=== PATIENT | female | born 1990 | race American Indian/Alaskan Native ===

== ENCOUNTER 2016-11-05 01:29 | Inpatient (IN) | payer BC, MEDICAID ==
[2016-11-05] MEDS ORDERED: XYLOCAINE 2% INFILTRATI ONE (03:15)
[2016-11-05] MEDS ORDERED: BRETHINE IVP PRN (03:15)
[2016-11-05] MEDS ORDERED: ePHEDrine SULFATE IV PRN ×2 (03:15→13:31)
[2016-11-05] MEDS ORDERED: BRETHINE SUB-Q PRN (03:15)
[2016-11-05] MEDS ORDERED: PFIZERPEN 5 MIL.UNITS in NACL 0.9% 50 ML IV ONE (03:30)
[2016-11-05 03:53] LABS: Hematocrit 23.5 % (30.3-42.9); Hemoglobin 7.8 gm/dl (10.1-14.3); Mean Corpuscular HGB Conc 33 % (30-34); Mean Corpuscular Volume 73 fl (79-97); Platelet Count 131 K/mm3 (140-440); Red Blood Count 3.22 M/mm3 (3.65-5.03); Red Cell Distribution Width 14.8 % (13.2-15.2); White Blood Count 7.9 K/mm3 (4.5-11.0)
[2016-11-05 03:55] LABS: Mean Corpuscular Hemoglobin 24 pg (28-32)
[2016-11-05] MEDS ORDERED: PITOCin/NS 20 UNIT/1000ML DRIP 20 UNITS/1,000 ML BAG IV SCH (04:00)
[2016-11-05] MEDS: LACTATED RINGERS 1,000 ML IV SCH ×4 (04:23→13:05)
[2016-11-05] MEDS ORDERED: PITOCin/NS 30 UNIT/500ML 30,000 MILLIUNITS/500 ML BAG IV ONE (06:25)
--- NOTE | 2016-11-05 06:48 | History and Physical Report ---
History of Present Illness Date of examination: 11/05/16 Date of admission: 11/05/16 02:49 Chief complaint: Leaking of water from vagina with gush on 11/04/16 at 15:30. History of present illness: Patient reports gush of clear fluid from vagina at 15:30 on November 04, 2016. Patient denies vaginal bleeding. She reports irregular contractions. Past History Past Medical History: other (herpes in the past (no outbreaks or prodromal symptoms now)) Past Surgical History: no surgical history REHAB NURSE History: herpes Family/Genetic History: none Social history: single - Obstetrical History Expected Date of Delivery: 12/04/16 Actual Gestation: 35 Week(s) 6 Day(s) : 7 Para: 5 Hx # Term Pregnancies: 5 Number of Pregnancies: 0 Spontaneous Abortions: 0 Induced : 1 Number of Living Children: 5 Medications and Allergies Allergies Allergy/AdvReac Type Severity Reaction Status Date / Time No Known Allergies Allergy Verified 06/15/15 19:00 Home Medications Medication Instructions Recorded Confirmed Last Taken Type Ferrous Sulfate [Feosol 325 MG tab] 325 mg PO TID #90 tablet 12/21/12 11/05/16 06/17/15 Rx Pnv with Ca,No.72/Iron/FA [Pnv 1 tab PO DAILY 06/15/15 11/05/16 06/17/15 History Plus Multivit Tab] Active Meds: Active Medications Lactated Ringer's (Lactated Ringers) 1,000 mls @ 125 mls/hr IV DIRECT BISHNU Last Admin: 11/05/16 04:23 Dose: 125 mls/hr Oxytocin/Sodium Chloride (Pitocin/Ns 20 Unit/1000ml Drip) 20 units in 1,000 mls @ 125 mls/hr IV DIRECT BISHNU Penicillin G Potassium 2.5 mil (.units/ Sodium Chloride) 50 mls @ 100 mls/hr IV Q4H BISHNU Oxytocin/Sodium Chloride (Pitocin/Ns 30 Unit/500ml) 30,000 milliunits in 500 mls @ 2 mls/hr IV DIRECT ONE; 2 MILLIUNITS/MIN PRN Reason: Protocol Stop: 11/15/16 16:24 Review of Systems Constitutional: no fever, no fatigue Eyes: no blurred vision, no irritation Ears, nose, mouth and throat: no hoarseness, no headache Cardiovascular: no lightheadedness, no shortness of breath, no leg edema Respiratory: no cough, no pain Breasts: no discharge Gastrointestinal: no abdominal pain, no vomiting - Vital Signs Vital signs: Vital Signs Temp Pulse Resp BP 98.9 F 92 H 16 106/66 11/05/16 03:00 11/05/16 03:00 11/05/16 03:00 11/05/16 03:00 Temp Pulse Resp BP Pulse Ox 98.9 F 92 H 16 106/66 11/05/16 03:00 11/05/16 03:00 11/05/16 03:00 11/05/16 03:00 - Physical Exam Breasts: Negative: deferred Cardiovascular: Regular rate Lungs: Positive: Clear to auscultation Abdomen: Positive: normal appearance. Negative: tenderness Genitourinary (Female): Positive: normal external genitalia. Negative: perineal /vulvar lesions Vulva: both: normal (+ pooling, + fern test, no lesions noted, no prodromal symptoms) Vagina: Negative: ulceration Cervix: Negative: lesion, discharge Uterus: Positive: enlarged. Negative: tender Adnexa: both: normal, mass, tenderness Anus/Rectum: Negative: hemorrhoids Extremities: Positive: normal Deep Tendon Reflex Grade: Normal +2 - Obstetrical FHR: category 1 Uterine Contraction Monitor Mode: External Cervical Dilatation: 2 Cervical Effacement Percentage: 50 station: -3 Uterine Contraction Pattern: Irregular Uterine Contraction Intensity: Mild Results Result Diagrams: 11/05/16 02:53 Abnormal lab results 11/05/16 Range/Units 02:53 RBC 3.22 L (3.65-5.03) M/mm3 Hgb 7.8 L (10.1-14.3) gm/dl Hct 23.5 L (30.3-42.9) % MCV 73 L (79-97) fl MCH 24 L (28-32) pg Plt Count 131 L (140-440) K/mm3 All other labs normal. Assessment and Plan A: at 35 weeks, 6 days gestation. Spontaneous rupture of membranes with clear fluid. Early labor. P: Admit. EFM. Pitocin augmentation of labor if needed. GBS prophylaxis.
[2016-11-05 07:40] LABS: Basophils % (Auto) 0.4 % (0.0-1.8); Eosinophils % (Auto) 1.9 % (0.0-4.3); Hemoglobin 6.9 gm/dl (10.1-14.3); Mean Corpuscular HGB Conc 33 % (30-34); Mean Corpuscular Volume 73 fl (79-97); Platelet Count 134 K/mm3 (140-440); Red Blood Count 2.85 M/mm3 (3.65-5.03); Red Cell Distribution Width 14.9 % (13.2-15.2); White Blood Count 7.6 K/mm3 (4.5-11.0)
[2016-11-05 07:55] LABS: Mean Corpuscular Hemoglobin 24 pg (28-32)
[2016-11-05] MEDS ORDERED: PFIZERPEN 2.5 MIL.UNITS in NACL 0.9% 50 ML IV SCH (08:00)
[2016-11-05] MEDS ORDERED: PFIZERPEN IV SCH (08:00)
[2016-11-05 08:07] LABS: HIV-1 Antigen p24 Non React (Non React); HIVR-1/2 Ab Non React (Non React)
[2016-11-05 10:46] LABS: Urine Drugs of Abuse Note Disclamer
--- NOTE | 2016-11-05 11:27 | Event Note ---
Date: 11/05/16 SVE 2-3/60/-2/cephalic. Clear fluid; no vaginal bleeding. Reassuring heart rate tracing. Maternal vital signs. Will continue to increase Pitocin per protocol.
[2016-11-05] MEDS ORDERED: SUBLIMAZE ONE (12:15)
[2016-11-05] MEDS ORDERED: SUBLIMAZE IV ONE (12:30)
[2016-11-05] MEDS ORDERED: ePHEDrine SULFATE ONE (12:35)
[2016-11-05] MEDS ORDERED: CYTOTEC ONE (12:35)
[2016-11-05] MEDS ORDERED: METHERGINE IM ONE (12:35)
[2016-11-05] MEDS ORDERED: NARCAN 2 MG/2 ML IV PRN (13:31)
--- NOTE | 2016-11-05 13:31 | Anesthesia Consultation ---
Anesthesia Consult and Med Hx Date of service: 11/05/16 - Airway Anesthetic Teeth Evaluation: Good ROM Head & Neck: Adequate Mental/Hyoid Distance: Adequate Intubation Access Assessment: Probably Good - Pulmonary Exam CTA: Yes - Cardiac Exam Cardiac Exam: RRR - Pre-Operative Health Status ASA Pre-Surgery Classification: ASA2, Emergency Proposed Anesthetic Plan: Epidural, Spinal - Pulmonary Hx Asthma: No COPD: No Hx Pneumonia: No - Cardiovascular System Hx Hypertension: No - Central Nervous System Hx Seizures: No Hx Psychiatric Problems: Yes (DEPRESSION) - Endocrine Hx Renal Disease: No Hx End Stage Renal Disease: No Hx Hypothyroidism: No Hx Hyperthyroidism: No - Hematic Hx Anemia: Yes Hx Sickle Cell Disease: No - Other Systems Hx Alcohol Use: No
[2016-11-05] MEDS ORDERED: fentaNYL-BUPIV 2 MCG/ML-0.125% 200 MCG/100 ML BAG EPIDURAL SCH (14:00)
--- NOTE | 2016-11-05 14:18 | Event Note ---
Date: 11/05/16 Patient is now 4 cm dilated and has an epidural per nurses' report. Patient reports that she is comfortable. FHR tracing is reassuring. Contractions are regular and maternal vital signs are stable. Patient has been receiving IV Penicillin for GBS prophylaxis (GBS unkown) and has also been receiving oxytocin for augmentation of labor. Repositioned patient to use gravity to help descent. Discussed plan of care with patient.
[2016-11-05] MEDS ORDERED: XYLOCAINE MPF 2% ONE (15:13)
[2016-11-05 19:19] LABS: Hematocrit 21.9 % (30.3-42.9); Hemoglobin 7.3 gm/dl (10.1-14.3); Mean Corpuscular HGB Conc 33 % (30-34); Mean Corpuscular Volume 74 fl (79-97); Platelet Count 116 K/mm3 (140-440); Red Blood Count 2.97 M/mm3 (3.65-5.03); White Blood Count 9.2 K/mm3 (4.5-11.0)
--- NOTE | 2016-11-05 19:52 | Procedure Note ---
OB Delivery Note - Vaginal Delivery position: OA Intrapartum events: bleeding site-undetermine Delivery augmentation: rupture of membranes, pitocin Delivery monitor: external FHT, external uterine Route of delivery: Delivery placenta: spontaneous Delivery laceration: none Delivery comments: Precipitous of liveborn female infant SHIRLEY over intact perineum at 17:42 weighing 4 lbs. 3 oz. with apgars of 8/9. Epidural anesthesia. Baby delivered easily and was taken immediately to radiant warmer. Spontaneous cry and respirations. NICU team called to delivery due to gestation and prolonged ROM. Spontaneous delivery of intact placenta and membranes by gallegos mechanism. EBL 500 ml (noted right at delivery not after delivery). No lacerations noted. Fundus firm and midline. No active bleeding noted after delivery. Mother stable in birthing room. Baby taken to NICU due to late gestation and small size.
[2016-11-05] MEDS ORDERED: MOTRIN PO PRN (19:57)
[2016-11-05 20:00] LABS: Mean Corpuscular Hemoglobin 25 pg (28-32)
[2016-11-05] MEDS: MOTRIN PO SCH (20:45)
[2016-11-05] MEDS ORDERED: PHENERGAN PO PRN (21:41)
[2016-11-05] MEDS ORDERED: ZOFRAN IV PRN (21:41)
[2016-11-05] MEDS ORDERED: TYLENOL PO PRN (21:41)
[2016-11-05] MEDS ORDERED: PHENERGAN PR PRN (21:41)
[2016-11-05] MEDS ORDERED: DULCOLAX PR PRN (21:41)
[2016-11-05] MEDS ORDERED: BENADRYL PO PRN (21:41)
[2016-11-05] MEDS ORDERED: TUCKS PAD TP PRN (21:41)
[2016-11-05] MEDS ORDERED: MILK OF MAGNESIA PO PRN (21:41)
[2016-11-05] MEDS ORDERED: LANSINOH TP PRN (21:41)
[2016-11-05] MEDS: NORCO 5/325 PO PRN (21:56)
[2016-11-05] MEDS: FEOSOL PO SCH (21:59)
[2016-11-05] MEDS ORDERED: SODIUM CHLORIDE FLUSH SYRINGE 10 ML IV SCH (22:00)
[2016-11-06 00:42] LABS: Hemoglobin 6.4 gm/dl (10.1-14.3); Mean Corpuscular HGB Conc 32 % (30-34); Mean Corpuscular Volume 74 fl (79-97); Platelet Count 116 K/mm3 (140-440); Red Blood Count 2.66 M/mm3 (3.65-5.03); Red Cell Distribution Width 14.9 % (13.2-15.2); White Blood Count 9.9 K/mm3 (4.5-11.0)
[2016-11-06 00:45] LABS: Mean Corpuscular Hemoglobin 24 pg (28-32)
[2016-11-06 00:46] LABS: Hematocrit 19.8 % (30.3-42.9)
[2016-11-06] MEDS: MOTRIN PO SCH ×3 (05:17→18:00)
--- NOTE | 2016-11-06 05:31 | Event Note ---
Date: 11/06/16 When patient was admitted her hemoglobin was 6.9 and hematocrit was 21. Patient states she did not take her iron supplement during . Now Hemoglobin is 6.4 and hematocrit is 19.8. Had a conversation with patient about the severe anemia and told her I would recommend blood transfusion. Patient states she is not symptomatic. Her vital signs have been normal. Patient agrees to take blood transfusion. Advised nurse Palak to transfuse 2 units of PRBCs. Will recheck H& H again after transfusion.
[2016-11-06] MEDS ORDERED: NACL 0.9% 500 ML 500 ML IV ONE (05:33)
--- NOTE | 2016-11-06 11:13 | Progress Note ---
Assessment and Plan A: day 1 S/P . Severe anemia. Bottlefeeding/. Plans BTL for control. P: Continue blood transfusion until 2 units of PRBCs have been transfused. Recheck H&H 4 hours. Plan for discharge tomorrow. Advised patient she needs to come by the [facility] ([facility]) and sign her tubal papers and make an appointment to see MD there to discuss BTL at 6 weeks . Subjective - Subjective Date of service: 11/06/16 Principal diagnosis: day 1 s/p Interval history: day 1 s/p . Receiving blood transfusion for severe anemia. Patient states she feels well; she denies dizziness, shortness of breath, fatigue, chest pain, fast heart beat, headaches, syncope, or any other symptoms. Patient is voiding without difficulty and ambulating well. She is tolerating a regular diet without nausea or vomiting. She is bottlefeeding and (baby is in NICU). Patient denies symptoms of depression. Patient plans to have BTL at 6 weeks . Objective - Vital Signs Vital Signs: Vital Signs - 12hr 11/06/16 11/06/16 11/06/16 01:38 06:15 06:42 Temperature 98.5 F 98.4 F 98.4 F Pulse Rate 78 86 86 Respiratory 18 16 20 Rate Blood Pressure 101/57 111/64 111/64 11/06/16 11/06/16 11/06/16 06:53 06:57 07:27 Temperature 98.0 F 98 F 98.2 F Pulse Rate 76 76 88 Respiratory 20 18 18 Rate Blood Pressure 109/65 109/65 100/57 11/06/16 11/06/16 11/06/16 07:57 08:36 08:45 Temperature 98.2 F 98 F 98 F Pulse Rate 71 80 94 H Respiratory 18 18 18 Rate Blood Pressure 106/56 116/74 110/64 11/06/16 11/06/16 11/06/16 09:15 09:45 10:15 Temperature 98.3 F 98 F 98.3 F Pulse Rate 97 H 85 86 Respiratory 18 18 18 Rate Blood Pressure 105/61 97/59 110/60 11/06/16 11:04 Temperature 98.4 F Pulse Rate 82 Respiratory 18 Rate Blood Pressure 104/59 - Exam Breasts: deferred Cardiovascular: Regular rate, No murmurs Lungs: Clear to auscultation Abdomen: Present: normal appearance, soft, other Uterus: Present: normal, firm Extremities: normal - Labs Labs: Abnormal Labs 11/05/16 11/05/16 11/05/16 02:53 02:53 02:53 RBC 3.22 L Hgb 7.8 L Hct 23.5 L MCV 73 L MCH 24 L Plt Count 131 L Major % (Auto) HCG, Quant 6918 H Crossmatch See Detail 11/05/16 11/05/16 11/05/16 05:45 18:28 23:58 RBC 2.85 L 2.97 L 2.66 L Hgb 6.9 L 7.3 L 6.4 L Hct 21.0 L 21.9 L 19.8 L* MCV 73 L 74 L 74 L MCH 24 L 25 L 24 L Plt Count 134 L 116 L 116 L Major % (Auto) 8.5 H HCG, Quant Crossmatch Laboratory Results - last 24 hr 11/05/16 11/05/16 11/05/16 02:53 10:40 18:28 WBC 9.2 RBC 2.97 L Hgb 7.3 L Hct 21.9 L MCV 74 L MCH 25 L MCHC 33 RDW 15.0 Plt Count 116 L Urine Opiates Screen Presumptive negative Urine Methadone Screen Presumptive negative Ur Barbiturates Screen Presumptive negative Ur Phencyclidine Scrn Presumptive negative Ur Amphetamines Screen Presumptive negative U Benzodiazepines Scrn Presumptive negative Urine Cocaine Screen Presumptive negative U Marijuana (THC) Screen Presumptive negative Drugs of Abuse Note Disclamer Blood Type O POSITIVE Antibody Screen TNR HEATHER Antibody Screen Negative Crossmatch See Detail 11/05/16 23:58 WBC 9.9 RBC 2.66 L Hgb 6.4 L Hct 19.8 L* MCV 74 L MCH 24 L MCHC 32 RDW 14.9 Plt Count 116 L Urine Opiates Screen Urine Methadone Screen Ur Barbiturates Screen Ur Phencyclidine Scrn Ur Amphetamines Screen U Benzodiazepines Scrn Urine Cocaine Screen U Marijuana (THC) Screen Drugs of Abuse Note Blood Type Antibody Screen HEATHER Antibody Screen Crossmatch
[2016-11-06] MEDS: FEOSOL PO SCH ×3 (12:00→22:11)
[2016-11-06] MEDS: NORCO 5/325 PO PRN (14:18)
[2016-11-06 17:13] LABS: Basophils % (Auto) 0.4 % (0.0-1.8); Eosinophils % (Auto) 1.7 % (0.0-4.3); Hematocrit 23.9 % (30.3-42.9); Hemoglobin 7.8 gm/dl (10.1-14.3); Mean Corpuscular HGB Conc 33 % (30-34); Mean Corpuscular Volume 77 fl (79-97); Platelet Count 120 K/mm3 (140-440); Red Blood Count 3.11 M/mm3 (3.65-5.03); Red Cell Distribution Width 17.1 % (13.2-15.2); White Blood Count 9.5 K/mm3 (4.5-11.0)
[2016-11-06 17:39] LABS: Mean Corpuscular Hemoglobin 25 pg (28-32)
[2016-11-07] MEDS: NORCO 5/325 PO PRN ×2 (01:07→09:32)
[2016-11-07] MEDS: MOTRIN PO SCH ×3 (05:47→12:00)
[2016-11-07] MEDS: FEOSOL PO SCH ×2 (09:31→15:59)
--- NOTE | 2016-11-07 11:55 | Progress Note ---
Assessment and Plan A: PP Day #2 Anemia P: Follow Routine Orders Continue FESO4 as directed Depo Provera prior to discharge Plans Sterilization for Contraception RTO in 3 Weeks Subjective - Subjective Principal diagnosis: day 1 s/p Patient reports: appetite normal, voiding normally, pain well controlled, flatus , ambulating normally, other (States she feels better after blood transfusion) : in NICU, bottle feeding Objective - Vital Signs Latest vital signs: Vital Signs Temp Pulse Resp BP 11/07/16 01:07 18 11/06/16 23:55 97.8 F 72 20 113/87 Intake and Output 11/06/16 11/07/16 11/07/16 22:59 06:59 14:59 Intake Total 120 360 Balance 120 360 Intake: Oral 120 360 Other: Total, Intake Amount 120 120 # Voids Void 1 1 - Exam Breasts: Present: normal Cardiovascular: Present: Regular rate Lungs: Present: Clear to auscultation Abdomen: Present: normal appearance, soft, normal bowel sounds Uterus: Present: normal, firm, fundal height below umbilicus Extremities: Present: normal - Labs Labs: Abnormal lab results 11/05/16 11/06/16 Range/Units 02:53 16:51 RBC 3.11 L (3.65-5.03) M/mm3 Hgb 7.8 L (10.1-14.3) gm/dl Hct 23.9 L (30.3-42.9) % MCV 77 L (79-97) fl MCH 25 L (28-32) pg RDW 17.1 H (13.2-15.2) % Plt Count 120 L (140-440) K/mm3 Lymph % (Auto) 12.5 L (13.4-35.0) % [place] % (Auto) 7.4 H (0.0-7.3) % Seg Neutrophils % 78.0 H (40.0-70.0) % Crossmatch See Detail
--- NOTE | 2016-11-07 11:56 | Discharge Summary ---
Providers - Providers Date of Admission: 11/05/16 02:49 Date of discharge: 11/07/16 Attending physician: SHIN GODINEZ MD Primary care physician: SHIN GODINEZ MD Hospitalization Reason for admission: active labor Delivery: Episiotomy: none Laceration: none Other procedures: other (blood transfusion) complications: other (anemia) Discharge diagnosis: IUP at term delivered [place] baby: female Condition at discharge: Good Disposition: DC-01 TO HOME OR SELFCARE Plan - Provider Discharge Summary Additional instructions: [] Smoking cessation referral if applicable(refer to patient education folder for contact #) [] Refer to [employer] Booklet Call your doctor immediately for: * Fever > 100.5 * Heavy vaginal bleeding ( >1 pad per hour) * Severe persistent headache * Shortness of breath * Reddened, hot, painful area to leg or breast * Drainage or odor from incision. * Keep incision clean and dry at all times and follow doctor's instructions regarding bathing/showering - Follow up plan Follow up: SHIN RODRIGUEZ MD [Primary Care Provider] - 7 Days
[2016-11-07] MEDS ORDERED: DEPO-PROVERA (CONTRACEPTION) IM ONE ×2 (12:00→15:00)
[2016-11-07 18:12] VITALS: BP 116/80
== END 2016-11-07 18:04 | disposition home or self-care (01) | DRG 775 ==
LOC: TRG 01:29 → LD 02:15 → TRG 02:49 → OB 21:47
PROVIDERS: ADMIT Obstetrics & Gynecology; ATTEND Obstetrics & Gynecology
PROC: 10E0XZZ Delivery of Products of Conception, External Approach (ICD-10-PCS; principal; 2016-11-05)
PROC: 3E0R3BZ Introduction of Anesthetic Agent into Spinal Canal, Percutaneous Approach (ICD-10-PCS; 2016-11-05)
PROC: 00HU33Z Insertion of Infusion Device into Spinal Canal, Percutaneous Approach (ICD-10-PCS; 2016-11-05)
PROC: 30233N1 Transfusion of Nonautologous Red Blood Cells into Peripheral Vein, Percutaneous Approach (ICD-10-PCS; 2016-11-06)
DX: O60.14X0 Preterm labor third trimester with preterm delivery third trimester, not applicable or unspecified (principal); O62.3 Precipitate labor; Z3A.35 35 weeks gestation of pregnancy; Z37.0 Single live birth; O76 Abnormality in fetal heart rate and rhythm complicating labor and delivery; O99.344 Other mental disorders complicating childbirth; F32.9 Major depressive disorder, single episode, unspecified; O99.02 Anemia complicating childbirth; D64.9 Anemia, unspecified
CPT/HCPCS: 36415; 80307; 84702; 85018; 85025; 85027; 86592; 86706; 86762; 86803; 86850; 86900; 86901; 86920; 87116; 87806; 88307; 99211; 99406; G0463; J1050; J2210; J2540; J2590; J3010; J7040; J7120; P9016

== ENCOUNTER 2018-09-18 18:57 | Inpatient (IN) | payer MEDICAID ==
[2018-09-18] MEDS: LACTATED RINGERS 1,000 ML IV SCH ×2 (19:00→21:17)
[2018-09-18] MEDS ORDERED: PITOCin/NS 30 UNIT/500ML 30 UNITS/500 ML BAG IV SCH (20:00)
[2018-09-18] MEDS ORDERED: PITOCin/NS 20 UNIT/1000ML DRIP 20,000 MILLIUNITS/1,000 ML BAG IV ONE (20:07)
[2018-09-18] MEDS ORDERED: CYTOTEC VG ONE (20:44)
[2018-09-18] MEDS ORDERED: PITOCin/NS 20 UNIT/1000ML DRIP 20 UNITS/1,000 ML BAG IV SCH (21:00)
[2018-09-18 21:01] LABS: Hematocrit 30.6 % (30.3-42.9); Hemoglobin 10.3 gm/dl (10.1-14.3); Mean Corpuscular HGB Conc 34 % (30-34); Mean Corpuscular Volume 79 fl (79-97); Platelet Count 262 K/mm3 (140-440); Red Blood Count 3.85 M/mm3 (3.65-5.03); Red Cell Distribution Width 15.7 % (13.2-15.2)
[2018-09-18 21:19] LABS: Amphetamine Screen,Urine PRESUMPTIVE NEGATIVE; Benzodiazepines Screen,Urine PRESUMPTIVE NEGATIVE; Cannabinoid Screen,Urine PRESUMPTIVE NEGATIVE; Cocaine Screen,Urine PRESUMPTIVE NEGATIVE; Methadone Screen,Urine PRESUMPTIVE NEGATIVE; Opiate Screen,Urine PRESUMPTIVE NEGATIVE
[2018-09-18] MEDS: STADOL IV PRN (21:43)
[2018-09-19] MEDS: STADOL IV PRN (04:01)
--- NOTE | 2018-09-19 07:31 | History and Physical Report ---
History of Present Illness Date of examination: 09/19/18 Date of admission: 09/18/18 18:57 Chief complaint: delivery History of present illness: 28y/o @ an unknown estimated gestation age because the patient was unaware she was . The patient states she began having cramping and subsequently had the delivery of a non-viable at approximately 18 weeks ega while in the car. The patient denies any history of delivery. She did not receive care during this . The patient was transported to L&D with the placenta still in utero. Past History Past Medical History: no pertinent history Past Surgical History: no surgical history Social history: single - Obstetrical History : 7 Para: 6 Hx # Term Pregnancies: 6 Number of Pregnancies: 0 Spontaneous Abortions: 0 Induced : 0 Number of Living Children: 6 Medications and Allergies Allergies Allergy/AdvReac Type Severity Reaction Status Date / Time No Known Allergies Allergy Verified 06/15/15 19:00 Home Medications Medication Instructions Recorded Confirmed Last Taken Type Ferrous Sulfate [Feosol 325 MG tab] 325 mg PO TID #90 tablet 12/21/12 11/05/16 06/17/15 Rx Pnv,Calcium 72/Iron/Folic Acid 1 tab PO DAILY 06/15/15 11/05/16 06/17/15 History [Pnv Plus Multivit Tab] Active Meds: Active Medications Butorphanol Tartrate (Stadol) 2 mg IV Q2H PRN PRN Reason: Labor Pain Last Admin: 09/19/18 04:01 Dose: 2 mg Documented by: Lactated Ringer's (Lactated Ringers) 1,000 mls @ 125 mls/hr IV DIRECT BISHNU Last Admin: 09/18/18 21:17 Dose: 125 mls/hr Documented by: Oxytocin/Sodium Chloride (Pitocin/Ns 30 Unit/500ml) 30 units in 500 mls @ 4 mls/hr IV TITR BISHNU; Protocol Last Admin: 09/18/18 19:00 Dose: 4 ml/hr, 4 mls/hr Documented by: Oxytocin/Sodium Chloride (Pitocin/Ns 20 Unit/1000ml Drip) 20 units in 1,000 mls @ 0 mls/hr IV DIRECT BISHNU Last Admin: 09/19/18 02:00 Dose: 125 mls/hr Documented by: Review of Systems Genitourinary: vaginal bleeding, pelvic pain, contractions - Vital Signs Vital signs: Vital Signs Temp Pulse Resp BP 98.2 F 86 18 128/61 09/18/18 19:30 09/18/18 19:30 09/18/18 19:30 09/18/18 19:30 Temp Pulse Resp BP Pulse Ox 98.2 F 79 18 103/59 09/18/18 19:30 09/19/18 06:31 09/18/18 21:43 09/19/18 06:31 - Physical Exam Breasts: Positive: deferred Cardiovascular: Regular rate Lungs: Positive: Clear to auscultation Results Result Diagrams: 09/18/18 19:20 Abnormal lab results 09/18/18 Range/Units 19:20 WBC 15.0 H (4.5-11.0) K/mm3 MCH 27 L (28-32) pg RDW 15.7 H (13.2-15.2) % All other labs normal. Assessment and Plan - Patient Problems (1) delivery Current Visit: Yes Status: Acute Plan to address problem: cytotec and pitocin initiated for delivery of placenta
--- NOTE | 2018-09-19 07:40 | Procedure Note ---
OB Delivery Note - Delivery Date of Delivery: 09/18/18 Surgeon: LETY HERNANDEZ Estimated blood loss: 500cc - Vaginal Intrapartum events: labor-<37 weeks Delivery placenta: spontaneous, other (retained placental tissue on ultrasound) Delivery comments: Patient had a spontaneous delivery of a presumed 18 week fetus. The was non-viable and perceived to be a male. The cord was clamped and cut. The placenta was retained. Cytotec and pitocin initiated with subsequent delivery of the placenta. Pelvic ultrasound demonstrated a thickened endometrium suggestive of retained placenta. Patient counseled for a suction dilation and curettage. - A at 1 minute: 0 at 5 minutes: 0 Gender: Male
[2018-09-19] MEDS ORDERED: NORCO 5/325 PO PRN (07:41)
[2018-09-19] MEDS ORDERED: TYLENOL PO PRN (07:41)
[2018-09-19] MEDS ORDERED: LANSINOH TP PRN (07:41)
[2018-09-19] MEDS ORDERED: TUCKS PAD TP PRN (07:41)
[2018-09-19] MEDS ORDERED: ZOFRAN IV PRN (07:41)
[2018-09-19] MEDS ORDERED: PHENERGAN PO PRN (07:41)
[2018-09-19] MEDS ORDERED: PHENERGAN PR PRN (07:41)
[2018-09-19] MEDS ORDERED: BENADRYL PO PRN (07:41)
[2018-09-19] MEDS ORDERED: IBUPROFEN PO SCH (08:00)
[2018-09-19] MEDS ORDERED: SODIUM CHLORIDE FLUSH SYRINGE 10 ML IV NR (08:00)
--- NOTE | 2018-09-19 08:23 | Ultrasound Report ---
Pelvic sonogram: History: Verify retained placenta. Findings: Uterus measures 13.7 x 7.6 x 8 cm. Thick endometrium with echogenic slightly vascular debris suggestive of retained products. Right ovary 3.1 x 1.6 x 1.7 cm but no mass. Left ovary 2.5 x 2.1 x 2.9 cm. No mass No fluid in the cul-de-sac. Impression: Retained products of conceptus and uterus.
--- NOTE | 2018-09-19 09:05 | Anesthesia Day of Surgery ---
Anesthesia Day of Surgery - Day of Surgery Patient Examined: Yes Patient H&P Reviewed: Yes Patient is NPO: Yes
--- NOTE | 2018-09-19 09:05 | Anesthesia Consultation ---
Anesthesia Consult and Med Hx Date of service: 09/19/18 - Airway Anesthetic Teeth Evaluation: Good ROM Head & Neck: Adequate Mental/Hyoid Distance: Adequate Mallampati Class: Class II Intubation Access Assessment: Probably Good - Pre-Operative Health Status ASA Pre-Surgery Classification: ASA2 Proposed Anesthetic Plan: General - Pulmonary Hx Smoking: Yes Hx Asthma: No COPD: No Hx Pneumonia: No - Cardiovascular System Hx Hypertension: No - Central Nervous System Hx Seizures: No Hx Psychiatric Problems: No - Endocrine Hx Renal Disease: No Hx End Stage Renal Disease: No Hx Hypothyroidism: No Hx Hyperthyroidism: No - Hematic Hx Anemia: No Hx Sickle Cell Disease: No - Other Systems Hx Alcohol Use: No - Additional Comments Anesthesia Medical History Comments: remained products of conception
[2018-09-19] MEDS ORDERED: DILAUDID ONE (09:16)
[2018-09-19] MEDS ORDERED: DIPRIVAN 10 MG/ML IV ONE (09:16)
[2018-09-19] MEDS ORDERED: XYLOCAINE MPF 2% ONE (09:19)
[2018-09-19] MEDS ORDERED: METHERGINE IM ONE (09:27)
[2018-09-19] MEDS ORDERED: ANCEF ONE (09:35)
[2018-09-19] MEDS ORDERED: NACL 0.9% IR ONE (09:45)
[2018-09-19] MEDS ORDERED: TORADOL ONE (09:50)
[2018-09-19] MEDS ORDERED: ZOFRAN ONE (09:50)
[2018-09-19] MEDS ORDERED: ceFAZolin 2 GM in NACL 0.9% 100 ML IV ONE (10:00)
[2018-09-19] MEDS ORDERED: DULCOLAX PR PRN (10:00)
--- NOTE | 2018-09-19 10:45 | Operative Report ---
Operative Report Operative Report: Date of surgery: 09/19/2018 Preoperative diagnosis: Retained products of conception Postoperative diagnosis: Same as above Procedure: Suction dilatation and curettage Surgeon: Vicky Medina M.D. Anesthesia: Gen. endotracheal anesthesia Estimated blood loss: 100 mL Findings: Retained placenta Indication: 28-year-old who is status post a spontaneous vaginal delivery of a 18 week nonviable . The placenta delivered spontaneously however the pelvic ultrasound demonstrated evidence of retained products of conception. Procedure: The patient was taken to the operating room and given general endotracheal anesthesia without complication. The patient is prepped and draped in a normal sterile fashion. A bivalve speculum was placed in the patient's vagina and a single-tooth tenaculums placed on the anterior lip of the cervix. The uterine cavity was then sounded. The cervical os was then dilated with graduated dilators. A number 8 Pashto curved cannula was placed to suction and found to be adequate. The cannula was then gently inserted into the dilated cervical os. Evacuation of the uterine contents were performed. Sharp curettage and endometrial surface was performed until cry was achieved. The cannula was then gently reinserted into the uterine cavity to evacuate any additional contents. After removal of the cannula there was no evidence of any active bleeding. The vaginal instruments were then removed atraumatically. The patient was then successfully extubated and taken to the recovery room in stable condition. All sponge laps and needle counts were correct 2. Pathology consisted of products of conception.
--- NOTE | 2018-09-19 10:48 | Discharge Summary ---
Providers - Providers Date of Admission: 09/18/18 18:57 Date of discharge: 09/19/18 Attending physician: LETY HERNANDEZ Primary care physician: LETY HERNANDEZ Hospitalization Reason for admission: labor, IUFD Delivery: Other procedures: curettage complications: retained placenta Discharge diagnosis: intrapartum demise, delivery [place] baby: male Hospital course: Patient is a 28-year-old at approximately 18 weeks estimated gestational age who reports having delivered a nonviable infant in the car. At the time of presentation the placenta was still in utero. The placenta remained undelivered until spontaneous delivery of the placenta occurred after use of Cytotec and Pitocin. A pelvic ultrasound was performed that did demonstrate evidence of retained placenta. The patient was taken for a suction dilatation and curettage. Her postoperative course was uneventful. Condition at discharge: Good Disposition: DC-01 TO HOME OR SELFCARE - Discharge Diagnoses (1) delivery Status: Acute Plan - Discharge Medications Prescriptions: Ibuprofen [Motrin] 800 mg PO Q8HR PRN #60 tablet PRN Reason: Pain, Mild (1-3) HYDROcodone/APAP 5-325 [Matador 5/325] 1 each PO Q6HR PRN #20 tablet PRN Reason: Pain - Provider Discharge Summary Activity: other (pelvic rest for 2 weeks) Diet: routine Instructions: routine Additional instructions: [] Smoking cessation referral if applicable(refer to patient education folder for contact #) [] Refer to [facility] Booklet Call your doctor immediately for: * Fever > 100.5 * Heavy vaginal bleeding ( >1 pad per hour) * Severe persistent headache * Shortness of breath * Reddened, hot, painful area to leg or breast * Scheduled visit in 4 weeks - Follow up plan
[2018-09-19] MEDS ORDERED: D5LR 1,000 ML IV SCH (11:00)
[2018-09-19 16:47] VITALS: BP 105/66
--- NOTE | 2018-09-19 17:52 | Post Anesthesia Evaluation ---
- Post Anesthesia Evaluation Patient Participated: Yes Airway Patent: Yes Stable Respiratory Function: Yes Nausea/Vomiting: No Temp > 96.8F: Yes Pain Manageable: Yes Adequeate Hydration: Yes Anesthesia Complications: No
[2018-09-19] MEDS ORDERED: MILK OF MAGNESIA PO PRN (22:00)
== END 2018-09-19 17:35 | disposition home or self-care (01) | DRG 770 ==
LOC: LD 18:57 → OB 09-19 09:53
PROVIDERS: ADMIT Obstetrics & Gynecology; ATTEND Obstetrics & Gynecology
PROC: 10D17ZZ Extraction of Products of Conception, Retained, Via Natural or Artificial Opening (ICD-10-PCS; principal; 2018-09-19)
DX: O03.4 Incomplete spontaneous abortion without complication (principal); Z3A.18 18 weeks gestation of pregnancy
CPT/HCPCS: 36415; 76856; 80307; 85027; 86592; 86850; 86900; 86901; 88305; G0378; J0595; J0690; J1170; J1885; J2210; J2405; J2590; J2704; J7120; J7121

== ENCOUNTER 2019-04-23 20:50 | Emergency (ER) | payer MEDICAID ==
--- NOTE | 2019-04-23 21:02 | Event Note ---
ED Screening Note Date of service: 04/23/19 Time: 21:01 ED Screening Note: 28 y o presents with sob and pain with inhaling cc of body aches and cp with breathing x 2 days states worsening lmp: 2 weeks This initial assessment/diagnostic orders/clinical plan/treatment(s) is/are subject to change based on patients health status, clinical progression and re- assessment by fellow clinical providers in the ED. Further treatment and workup at subsequent clinical providers discretion. Patient/guardian urged not to elope from the ED as their condition may be serious if not clinically assessed and managed. Initial orders include: cxr
--- NOTE | 2019-04-23 21:59 | XRay Report ---
CHEST 2 VIEWS INDICATION: pain. COMPARISON: None. FINDINGS: Support devices: None. Heart: Within normal limits. Lungs/Pleura: No acute air space or interstitial disease. No significant pleural effusion. IMPRESSION: No acute findings. Signer Name: Jefferson Kang MD Signed: 04/23/2019 9:54 PM Workstation Name: [id number]
--- NOTE | 2019-04-24 00:11 | Emergency Department Report ---
ED General Adult HPI - General Chief complaint: Upper Respiratory Infection Stated complaint: CHEST AND BODY PAIN Time Seen by Provider: 04/23/19 23:51 Source: patient Mode of arrival: Ambulatory Limitations: No Limitations - History of Present Illness Initial comments: Ms Vitale this 28-year-old -Irish female who presents for cough that radiates low back pain radiating suprapubic 3 days, there is no vaginal discharge, LMP 1 week ago. Patient denies chills, or fever no n/v, states cough nonproductive , no wheezing. pt is tolerating po intake. Symptoms are relieved by nothing tried, symptoms are exacerbated by activity. Onset/Timin -: days(s) Location: abdomen (superpubic ) Radiation: abdomen (superpubic ) Severity scale (0 -10): 3 Quality: aching Consistency: intermittent Improves with: none Worsens with: none Associated Symptoms: denies: confusion, fever/chills, nausea/vomiting - Related Data Home Medications Medication Instructions Recorded Confirmed Last Taken Pnv,Calcium 72/Iron/Folic Acid 1 tab PO DAILY 06/15/15 11/05/16 06/17/15 [Pnv Plus Multivit Tab] Previous Rx's Medication Instructions Recorded Last Taken Type Ferrous Sulfate [Feosol 325 MG tab] 325 mg PO TID #90 tablet 12/21/12 06/17/15 Rx HYDROcodone/APAP 5-325 [[place] 1 each PO Q6HR PRN #20 tablet 09/19/18 Unknown Rx 5/325] Ibuprofen [Motrin] 800 mg PO Q8HR PRN #60 tablet 09/19/18 Unknown Rx Ketorolac [Toradol] 10 mg PO Q6H PRN #12 tablet 04/24/19 Unknown Rx levoFLOXacin [Levaquin TAB] 500 mg PO QDAY 10 Days #10 tablet 04/24/19 Unknown Rx Allergies Allergy/AdvReac Type Severity Reaction Status Date / Time No Known Allergies Allergy Verified 06/15/15 19:00 ED Review of Systems ROS: Stated complaint: CHEST AND BODY PAIN Other details as noted in HPI Constitutional: denies: chills, fever Eyes: denies: eye pain, eye discharge, vision change ENT: congestion. denies: ear pain, throat pain, dental pain, hearing loss, epistaxis Respiratory: denies: cough, shortness of breath, wheezing Cardiovascular: denies: chest pain, palpitations Endocrine: no symptoms reported Gastrointestinal: abdominal pain (super pubic ), nausea. denies: vomiting, diarrhea, constipation, hematemesis, melena, hematochezia Genitourinary: denies: urgency, dysuria, frequency, hematuria, discharge, dyspareunia Musculoskeletal: denies: back pain, joint swelling, arthralgia Skin: denies: rash, lesions Neurological: denies: headache, weakness, paresthesias Psychiatric: denies: anxiety, depression Hematological/Lymphatic: denies: easy bleeding, easy bruising ED Past Medical Hx - Past Medical History Hx Hypertension: No Hx Congestive Heart Failure: No Hx Diabetes: No Hx Deep Vein Thrombosis: No Hx Renal Disease: No Hx Sickle Cell Disease: No Hx Seizures: No Hx Asthma: No Hx COPD: No Hx HIV: No Additional medical history: Gonorrhea and Chlamydia - Social History Smoking Status: Current Every Day Smoker Substance Use Type: None - Medications Home Medications: Home Medications Medication Instructions Recorded Confirmed Last Taken Type Ferrous Sulfate [Feosol 325 MG tab] 325 mg PO TID #90 tablet 12/21/12 11/05/16 06/17/15 Rx Pnv,Calcium 72/Iron/Folic Acid 1 tab PO DAILY 06/15/15 11/05/16 06/17/15 History [Pnv Plus Multivit Tab] HYDROcodone/APAP 5-325 [[place] 1 each PO Q6HR PRN #20 tablet 09/19/18 Unknown Rx 5/325] Ibuprofen [Motrin] 800 mg PO Q8HR PRN #60 tablet 09/19/18 Unknown Rx Ketorolac [Toradol] 10 mg PO Q6H PRN #12 tablet 04/24/19 Unknown Rx levoFLOXacin [Levaquin TAB] 500 mg PO QDAY 10 Days #10 tablet 04/24/19 Unknown Rx ED Physical Exam - General Limitations: No Limitations General appearance: alert, in no apparent distress - Head Head exam: Present: atraumatic, normocephalic - Eye Eye exam: Present: normal appearance, PERRL, EOMI - ENT ENT exam: Present: mucous membranes moist - Neck Neck exam: Present: normal inspection, full ROM. Absent: tenderness, lymphadenopathy - Respiratory Respiratory exam: Present: normal lung sounds bilaterally. Absent: respiratory distress, wheezes, rales, rhonchi, stridor, chest wall tenderness - Cardiovascular Cardiovascular Exam: Present: regular rate, normal rhythm, normal heart sounds. Absent: systolic murmur, diastolic murmur, rubs, gallop - GI/Abdominal GI/Abdominal exam: Present: soft, normal bowel sounds. Absent: distended, tenderness, bruit, hernia - Rectal Rectal exam: Present: deferred - External exam: Present: other (exam deferred ) - Extremities Exam Extremities exam: Present: normal inspection, full ROM. Absent: tenderness - Back Exam Back exam: Present: full ROM, tenderness, CVA tenderness (R), CVA tenderness (L). Absent: vertebral tenderness, rash noted - Neurological Exam Neurological exam: Present: alert, oriented X3, CN II-XII intact, normal gait - Psychiatric Psychiatric exam: Present: normal affect, normal mood - Skin Skin exam: Present: warm, dry, intact, normal color. Absent: rash ED Course Vital Signs 04/23/19 20:55 Temperature 99.2 F Pulse Rate 118 H Respiratory 16 Rate Blood Pressure 108/60 O2 Sat by Pulse 97 Oximetry ED Medical Decision Making - Lab Data Result diagrams: 04/24/19 01:53 04/24/19 01:53 Labs 04/24/19 04/24/19 04/24/19 01:53 01:53 Unknown WBC 12.3 H RBC 4.18 Hgb 8.1 L Hct 25.8 L MCV 62 L MCH 20 L MCHC 32 RDW 17.3 H Plt Count 273 Sodium 131 L Potassium 3.4 L Chloride 98.0 Carbon Dioxide 20 L Anion Gap 16 BUN 7 Creatinine 0.6 L Estimated GFR > 60 BUN/Creatinine Ratio 12 Glucose 112 H Calcium 9.0 Total Bilirubin 1.30 H AST 15 ALT 7 Alkaline Phosphatase 45 Total Protein 7.7 Albumin 3.5 L Albumin/Globulin Ratio 0.8 Urine Color Yellow Urine Turbidity Turbid Urine pH 6.0 Ur Specific [place] 1.009 Urine Protein 100 mg/dl Urine Glucose (UA) Neg Urine Ketones Neg Urine Blood Mod Urine Nitrite Pos Urine Bilirubin Neg Urine Urobilinogen < 2.0 Ur Leukocyte Esterase Lg Urine WBC (Auto) > 182.0 H Urine RBC (Auto) 15.0 U Epithel Cells (Auto) 23.0 H Urine Bacteria (Auto) 3+ Urine WBC Clumps 3+ Urine HCG, Qual 04/24/19 Unknown WBC RBC Hgb Hct MCV MCH MCHC RDW Plt Count Sodium Potassium Chloride Carbon Dioxide Anion Gap BUN Creatinine Estimated GFR BUN/Creatinine Ratio Glucose Calcium Total Bilirubin AST ALT Alkaline Phosphatase Total Protein Albumin Albumin/Globulin Ratio Urine Color Urine Turbidity Urine pH Ur Specific [place] Urine Protein Urine Glucose (UA) Urine Ketones Urine Blood Urine Nitrite Urine Bilirubin Urine Urobilinogen Ur Leukocyte Esterase Urine WBC (Auto) Urine RBC (Auto) U Epithel Cells (Auto) Urine Bacteria (Auto) Urine WBC Clumps Urine HCG, Qual Negative - EKG Data Rate: normal - Radiology Data Radiology results: report reviewed, image reviewed no - Medical Decision Making CT Abd and pelvis no renal stones, Likely peylonephritis, pt adamant no admission plan: rocepdoni, dc 'd to home with rx for levaquin po, ketoralac , follow up with pcp in 2-3 days. pt is tolerating po intake , there is no fever , no n/v , flank pain is improved. there is no vaginal discharge. Critical care attestation.: If time is entered above; I have spent that time in minutes in the direct care of this critically ill patient, excluding procedure time. ED Disposition Clinical Impression: Pyelonephritis UTI (urinary tract infection) Qualifiers: Urinary tract infection type: acute cystitis Hematuria presence: without hematuria Qualified Code(s): N30.00 - Acute cystitis without hematuria Disposition: DC- TO HOME OR SELFCARE Is pt being admited?: No Does the pt Need Aspirin: No Condition: Stable Instructions: Urinary Tract Infection in Women (ED), Acute Pyelonephritis (ED) Prescriptions: levoFLOXacin [Levaquin TAB] 500 mg PO QDAY 10 Days #10 tablet Ketorolac [Toradol] 10 mg PO Q6H PRN #12 tablet PRN Reason: Pain Referrals: TAYLOR MULLER MD [Staff Physician] - 3-5 Days [facility] [Outside] - 3-5 Days Forms: Work/School Release Form(ED) Time of Disposition: 03:17
[2019-04-24] MEDS ORDERED: IBUPROFEN 800 MG TAB PO ONE (00:15)
[2019-04-24 01:25] LABS: Bacteria,Urine 3+ /HPF (Negative); Bilirubin,Urine NEG (Negative); Blood,Urine MOD (Negative); Color,Urine Yellow (Yellow); Urobilinogen,Urine < 2.0 mg/dL (<2.0)
[2019-04-24 01:28] LABS: WBC,Urine > 182.0 /HPF (0.0-6.0)
[2019-04-24 01:31] LABS: HCG Qualitative,Urine Negative (Negative)
[2019-04-24] MEDS ORDERED: ONDANSETRON 4 MG/2 ML INJ IV ONE (01:37)
[2019-04-24] MEDS ORDERED: cefTRIAXone/NS 1 GM/50 ML 1 GM/50 ML BAG IV ONE (01:37)
[2019-04-24] MEDS ORDERED: KETOROLAC 30 MG/1 ML INJ IV ONE (01:37)
[2019-04-24] MEDS ORDERED: SODIUM CHLORIDE 0.9% 1000 ML 1,000 ML IV ONE (01:37)
[2019-04-24 02:24] LABS: Hematocrit 25.8 % (30.3-42.9); Hemoglobin 8.1 gm/dl (10.1-14.3); Mean Corpuscular HGB Conc 32 % (30-34); Platelet Count 273 K/mm3 (140-440); Red Blood Count 4.18 M/mm3 (3.65-5.03); Red Cell Distribution Width 17.3 % (13.2-15.2)
[2019-04-24 02:31] LABS: Mean Corpuscular Volume 62 fl (79-97)
--- NOTE | 2019-04-24 02:34 | Cat Scan Report ---
CT ABDOMEN AND PELVIS WITHOUT IV CONTRAST INDICATION: Pt complains of LEFT sided flank pain, No hx of previous stones. COMPARISON: None available. TECHNIQUE: All CT scans at this facility use dose modulation, automated exposure control, iterative reconstructi on or weight based dosing, when appropriate, to reduce radiation dose to as low as reasonably achieva ble. FINDINGS: Lung Bases: Within the anterior right middle lobe, there are 2 3 mm subpleural nodules. Given the pat ient's age, these are of doubtful clinical significance. Lung bases are otherwise clear. Skeletal System: No acute abnormality. ABDOMEN: Liver: No significant abnormality. Gallbladder: No significant abnormality. Bile Ducts: No significant abnormality. Pancreas: No significant abnormality. Spleen: No significant abnormality. Adrenals: No significant abnormality. Right Kidney: No significant abnormality. Left Kidney: There is subtle asymmetric left perinephric stranding. The left kidney appears mildly ed ematous. No nephrolithiasis or hydronephrosis. Upper GI tract: No significant abnormality. Lymph Nodes: No significant adenopathy. Aorta: No significant abnormality. Additional Findings: No significant abnormality. PELVIS: Colon: No acute abnormality. Urinary Bladder and Distal Ureters: Mild bladder wall thickening. Appendix: No significant abnormality. Lymph Nodes: No significant adenopathy. Additional Findings: Trace free fluid in the cul-de-sac is likely physiologic. IMPRESSION: 1. There is subtle asymmetric left perinephric stranding in the left kidney appears mildly edematous . Correlate clinically for left pyelonephritis. No nephrolithiasis or hydronephrosis. There is probab le mild cystitis. Signer Name: Sanford Prieto MD Signed: 04/24/2019 2:30 AM Workstation Name: [email or web address]
[2019-04-24 02:52] LABS: Alanine Aminotransferase 7 units/L (7-56); Albumin 3.5 g/dL (3.9-5); BUN/Creatinine Ratio 12; Blood Urea Nitrogen 7 mg/dL (7-17); Hemolysis Index 3
[2019-04-24 03:41] VITALS: BP 104/57
== END 2019-04-24 03:40 | disposition home or self-care (01) ==
LOC: ED 20:50
DX: N12 Tubulo-interstitial nephritis, not specified as acute or chronic (principal); N39.0 Urinary tract infection, site not specified; F17.200 Nicotine dependence, unspecified, uncomplicated; Z79.1 Long term (current) use of non-steroidal anti-inflammatories (NSAID); Z79.899 Other long term (current) drug therapy
CPT/HCPCS: 36415; 71046; 74176; 80053; 81001; 81025; 85027; 96365; 96375; 99284; J0696; J1885; J2405; J7030